=== PATIENT | female | born 1985 | race Caucasian/White ===

== ENCOUNTER 2017-09-03 20:18 | Emergency (ER) | END 2017-09-04 01:36 | disposition home or self-care (01) ==

== ENCOUNTER 2017-12-29 01:21 | Inpatient (IN) | END 2018-01-01 17:25 | disposition home or self-care (01) | DRG 780 ==

== ENCOUNTER 2018-02-02 21:14 | Inpatient (IN) | END 2018-02-06 19:25 | disposition home or self-care (01) | DRG 766 ==

== ENCOUNTER 2018-06-18 15:17 | Emergency (ER) | END 2018-06-18 18:44 | disposition home or self-care (01) ==